=== PATIENT | male | born 1960 | race Caucasian/White ===

== ENCOUNTER 2018-05-04 16:44 | Emergency (ER) | payer OTHER ==
[~2018-05-04] VITALS: Ht 162.6 cm; Wt 93.0 kg
[2018-05-04 16:57] VITALS: Ht 162.6 cm; Wt 93.0 kg
[2018-05-04 19:18] VITALS: BP 188/109
== END 2018-05-04 19:18 | disposition home or self-care (01) ==
LOC: ED 16:44
DX: B02.9 Zoster without complications (principal); R03.0 Elevated blood-pressure reading, without diagnosis of hypertension

== ENCOUNTER 2018-05-06 11:17 | Emergency (ER) | payer OTHER ==
[~2018-05-06] VITALS: Ht 167.6 cm; Wt 91.6 kg
[2018-05-06 11:31] VITALS: Ht 167.6 cm; Wt 91.6 kg
[2018-05-06 12:03] VITALS: BP 188/105
== END 2018-05-06 12:20 | disposition home or self-care (01) ==
LOC: ED 11:17
DX: Z76.0 Encounter for issue of repeat prescription (principal); B02.9 Zoster without complications; I10 Essential (primary) hypertension